=== PATIENT | female | born 1970 ===

== ENCOUNTER → 2018-05-06 21:09 | Outpatient (REF) | payer BC, SELFPAY ==
[2018-05-09 11:51] LABS: HSV 1 IgM Screen Negative (Negative); HSV 2 IgM Screen Negative (Negative)
== END ==
LOC: LAB 21:09
PROVIDERS: Visit Provider Naturopath
DX: N90.89 Other specified noninflammatory disorders of vulva and perineum (principal)
CPT/HCPCS: 36415; 86694; 86695; 86696